=== PATIENT | female | born 1980 | race Caucasian/White ===

== ENCOUNTER 2017-10-14 20:59 | Emergency (ER) | payer OTHER ==
[~2017-10-14] VITALS: Ht 160 cm; Wt 72.9 kg
[2017-10-14] MEDS ORDERED: KEFLEX500 MG PO (21:30)
[2017-10-14 23:00] VITALS: BP 152/90
== END 2017-10-14 23:31 | disposition home or self-care (01) ==
LOC: EME 20:59
DX: J02.0 Streptococcal pharyngitis (principal); J01.00 Acute maxillary sinusitis, unspecified; F17.200 Nicotine dependence, unspecified, uncomplicated
CPT/HCPCS: 87651 90; 99281; 99284